=== PATIENT | female | born 1990 | race Caucasian/White ===

== ENCOUNTER 2016-02-17 17:59 | Emergency (ER) | payer BC ==
[~2016-02-17] VITALS: Ht 167.6 cm; Wt 130.5 kg
[~2016-02-17 17:59] MED LIST: ALBU0.63 NEB; ALBU8I INH; IBUP800T23 PO; ORPH100T PO; TRAM50 PO
[2016-02-17 18:11] VITALS: BP 141/102; PULSE 78; RESP 16; TEMP 98.8; O2SAT 98
[2016-02-17] MEDS ORDERED: VENTAER INH (18:34)
[2016-02-17] MEDS ORDERED: DICL75TA PO (18:56)
[2016-02-17] MEDS ORDERED: MAGICPED SWISH-SWAL (18:56)
[2016-02-17] MEDS ORDERED: oxyCODONE/ACETAMINOPHEN 5 MG/325 MG TAB PO ONE (19:00)
--- NOTE | 2016-02-17 19:05 | PD ---
HPI Chief Complaint: Oral / Dental Pain or Problem Time Seen by Provider: 18:59 Travel History International Travel<30 days: No Contact w/Intl Traveler<30days: No Traveled to known affect area: No History of Present Illness HPI Patient is a 25-year-old female presenting with dental pain. She has a tooth in the left upper that has had fillings and left lower has a crown done several years prior that has been painful since midnight last night. She reports the pain is sharp and achy. The pain comes in "waves "and will have spontaneous remission. She denies any bleeding, masses or swelling. She is use NSAIDs and Orajel with no relief. She reports pain is 1010. She denies any trauma or injury to the face. The pain does not radiate. She denies sore throat, difficulty swallowing or breathing. Denies fever and chills. PFSH Past Medical History Asthma: Yes Diminished Hearing: No Respiratory: Yes (asthma) Immunizations Current: Yes ?: Not LMP: 6 WEEK AGO : 0 Past Surgical History Oral Surgery: Yes (WISDOM TEETH REMOVED) Tonsillectomy: Yes (T&A) Other Surgery: Yes (PYLONIADAL CYST ) Social History Alcohol Use: Yes (SOCIAL) Tobacco Use: No Substance Use: No Allergies-Medications (Allergen,Severity, Reaction): Coded Allergies: Grass (Verified Allergy, Intermediate, ITCHING, 02/17/16) Reported Meds & Prescriptions Reported Meds & Active Scripts Active Magic Mouthwash Pediatric/Adult Liq (Lidocaine/Diphenhydr/Alum/Mg/Simeth) 60 Ml Susp 10 Ml SWISH-SWAL ACHS Each 5 mL contains: Diphenydramine 4.5 mg,Viscous Lidocaine 2% 10 mg, Maalox Advanced Regular Strength 2.7 ml (Aluminum hydroxide 108 mg, Magnesium hydroxide 108 mg and Simethicone 10.8 mg) Diclofenac Sodium DR (Diclofenac Sodium) 75 Mg Tabdr 75 Mg PO BID Reported Ventolin Hfa 18 GM Inh (Albuterol Sulfate) 90 Mcg/Act Aer 2 Puff INH Q4-6H PRN Review of Systems Except as stated in HPI: all other systems reviewed are Neg Physical Exam Narrative GENERAL: Well-developed and well-nourished adult female in no acute distress. SKIN: Warm and dry. Good turgor without tenting. HEAD: Normocephalic and atraumatic. EYES: PERRL bilaterally, 5mm. EOMI bilaterally. No injection or icterus present. No proptosis. Lids without edema or erythema. ENT: Teeth are painful are #14 and 19. [place] is in place on #19. There are tooth-colored fillings that are in place tooth #14. They're not tender to percussion and there are not loose or subluxed. No fractures of the teeth. There is no gingival erythema, induration, fluctuance or tenderness. No buccal or sublingual masses. Buccal mucosa pink and moist. Oropharynx free of erythema , tonsillar hypertrophy, masses, swelling, asymmetry and exudates. Uvula midline and airway patent. NECK: Supple, no meningeal signs. Trachea midline, no JVD. No cervical or facial lymphadenopathy. CARDIOVASCULAR: Regular rate and rhythm without murmurs, rubs, clicks or gallops. Radial pulses 2+ bilaterally. RESPIRATORY: Clear to auscultation bilaterally with symmetrical rise and fall, no distress or use of accessory muscles. NEUROLOGIC: CN II-XII grossly intact. Awake and alert. Motor grossly within normal limits. Normal speech. PSYCHIATRIC: Appropriate mood and affect; insight and judgment normal. Data Data Last Documented VS Vital Signs Date Time Temp Pulse Resp B/P Pulse Ox O2 Delivery O2 Flow Rate FiO2 02/17/16 18:11 98.8 78 16 141/102 98 Orders Ed Urine Pregnancytest Poc (02/17/16 18:45) Oxycodone-Acetamin 5-325 Mg (Percocet (02/17/16 19:00) MDM Medical Decision Making Medical Screen Exam Complete: Yes Emergency Medical Condition: Yes Differential Diagnosis Caries versus Periapical abscess versus cellulitis versus Tooth Fracture vs less likely Ludwigs Angina Narrative Course Patient's 25-year-old with 10 out of 10 episodic dental pain and to treat the left side since midnight. Attempts at palliation have not helped. She seems to be in discomfort however there are no hard findings suggesting any pathology specifically. I think that she has a crown in place and fillings in place that perhaps there is caries present underneath these but cannot be certain. There is no sign of infection. Patient was given Percocet here once and a prescription for diclofenac and Magic mouthwash. Recommend follow-up with dentist tomorrow morning.See discharge paperwork for further instructions. The plan was discussed with the patient who acknowledged their understanding and agreement. Reinforced the follow-up with primary care is critically important. Patient instructed on emergent conditions that should prompt return to ED. Diagnosis Primary Impression: Pain, dental Patient Instructions: General Instructions, Narcotic given in the ED Additional Instructions: Take medication as directed Use salt water gargles, Orajel, or other OTC products for topical pain relief Apply ice packs hourly as needed to help with swelling and pain Schedule with dentist NORBERT for definitive treatment Return to the ED for any acute worsening of symptoms Med/Other Pt SpecificInfo: Prescription(s) given Scripts Tdyquvyzrengdjp-Jfpreenpu-Pvl-Alum-Simeth Liq (Magic Mouthwash Pediatric/Adult Liq)60 Ml Susp10 Ml SWISH-SWAL ACHS #120 ML Each 5 mL contains: Diphenydramine 4.5 mg,Viscous Lidocaine 2% 10 mg, Maalox Advanced Regular Strength 2.7 ml (Aluminum hydroxide 108 mg, Magnesium hydroxide 108 mg and Simethicone 10.8 mg) Prov:Aiden Castro MD 02/17/[address] 75 Mg Tabdr75 Mg PO BID #14 TAB Prov:Aiden Castro MD 02/17/16 Disposition: 01 DISCHARGE HOME Condition: Stable Sebastian Mandujano III Feb 17, 2016 19:05
== END 2016-02-17 19:43 | disposition home or self-care (01) ==
LOC: PHEFT 17:59
DX: K08.89 Other specified disorders of teeth and supporting structures (principal)
CPT/HCPCS: 84703; 99282

== ENCOUNTER 2016-11-10 19:17 | Emergency (ER) | payer BC ==
[~2016-11-10 19:17] MED LIST changes: -ALBU0.63 NEB; -ALBU8I INH; +DICL75TA PO; -IBUP800T23 PO; +MAGICPED SWISH-SWAL; -ORPH100T PO; -TRAM50 PO; +VENTAER INH
[2016-11-10 19:18] VITALS: BP 156/72; PULSE 116; RESP 16; TEMP 99.9; O2SAT 95
[2016-11-10] MEDS ORDERED: DESO1TAB14 PO (19:55)
[2016-11-10] MEDS ORDERED: PHEN0.4T PO (19:55)
[2016-11-10] MEDS ORDERED: MACR100C2 PO (19:55)
[2016-11-11] MEDS ORDERED: DOXY100C PO (02:40)
[2016-11-11] MEDS ORDERED: HYDR-3533 PO (02:40)
[2016-11-11] MEDS ORDERED: ACYC400T PO (02:40)
== END 2016-11-10 21:57 | disposition left against medical advice (07) ==
LOC: NED 19:17
DX: R21 Rash and other nonspecific skin eruption (principal); Z53.21 Procedure and treatment not carried out due to patient leaving prior to being seen by health care provider
CPT/HCPCS: 99281

== ENCOUNTER 2016-11-10 22:14 | Emergency (ER) | payer BC ==
[~2016-11-10] VITALS: Ht 167.6 cm; Wt 121.9 kg
[~2016-11-10 22:14] MED LIST changes: +DESO1TAB14 PO; +MACR100C2 PO; +PHEN0.4T PO
[2016-11-10 22:20] VITALS: BP 137/84; PULSE 93; RESP 16; TEMP 99.5; O2SAT 98
[2016-11-10 23:07] LABS: GLUCOSE,URINE 500 mg/dL (NEG); KETONE, URINE TRACE mg/dL (NEG); NITRITE,URINE POS (NEG)
[2016-11-10 23:20] LABS: BLOOD, URINE TRACE (NEG)
[2016-11-10 23:21] LABS: URINE COLOR ORANGE (YELLW/STRAW)
[2016-11-10 23:22] LABS: MUCUS URINE MOD /lpf (OCC)
[2016-11-10 23:24] LABS: BACTERIA, URINE FEW /hpf; COMMENT (UR) CULTURE INDICATED; CULTURE IF INDICATED CULTURE INDICATED
[2016-11-11] MEDS ORDERED: AZITHROMYCIN 250 MG TAB PO ONE (02:00)
[2016-11-11] MEDS ORDERED: LIDOCAINE HCL 1% 50 ML VIAL IM ONE (02:00)
[2016-11-11] MEDS ORDERED: cefTRIAXone 250 MG VIAL IM ONE (02:00)
[2016-11-11 02:20] VITALS: BP 148/90; PULSE 90; RESP 16; O2SAT 100
[2016-11-11] MEDS ORDERED: ACYC400T PO (02:40)
[2016-11-11] MEDS ORDERED: HYDR-3533 PO (02:40)
[2016-11-11] MEDS ORDERED: DOXY100C PO (02:40)
--- NOTE | 2016-11-11 02:41 | PD ---
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 Patient was recently seen in urgent care and prescribed Macrobid without symptom relief. Due to persistence of symptoms decided to come to the emergency room for further evaluation. Patient is urinary frequency and urgency and dysuria. No reported vaginal discharge or abnormal vaginal bleeding. Patient denies . Discomfort is 6/10 in intensity. No reported fever chills nausea vomiting flank pain or hematuria. No other complaints no respiratory illness no chest pain or shortness of breath no generalized abdominal pain no joint pain or swelling or skin rash. Patient is to identify exacerbating or alleviating factors. PFSH Past Medical History Narrative Medical Asthma dental extraction tonsillectomy occasional alcohol use no tobacco use nursing notes reviewed Asthma: Yes Diminished Hearing: No Respiratory: Yes (asthma) Immunizations Current: Yes Influenza Vaccination: No ?: Not LMP: 10/15/16 : 0 Past Surgical History Oral Surgery: Yes (WISDOM TEETH REMOVED) Tonsillectomy: Yes (T&A) Other Surgery: Yes (PYLONIADAL CYST ) Social History Alcohol Use: Yes (SOCIAL) Tobacco Use: No Substance Use: No Allergies-Medications (Allergen,Severity, Reaction): Coded Allergies: grass pollen (Unverified Allergy, Intermediate, ITCHING, 11/15/16) Reported Meds & Prescriptions Reported Meds & Active Scripts Active Acyclovir 400 Mg Tab 400 Mg PO TID 7 Days Lortab (Hydrocodone-Acetaminophen) 5-325 Mg Tab 1 Tab PO Q6H PRN Doxycycline Hyclate 100 Mg Cap 100 Mg PO BID Reported Ibuprofen 400 Mg Tab 400 Mg PO Q4H PRN Azurette (Desogestrel-Ethinyl Estradiol) 0.15-0.02/0.01 Mg (29/06) Tab 1 Tab PO DAILY Ventolin Hfa 18 GM Inh (Albuterol Sulfate) 90 Mcg/Act Aer 2 Puff INH Q4-6H PRN Review of Systems Except as stated in HPI: all other systems reviewed are Neg General / Constitutional: No: Fever, Chills HENT: No: Congestion Cardiovascular: No: Chest Pain or Discomfort Respiratory: No: Shortness of Breath Gastrointestinal: No: Abdominal Pain Genitourinary: Positive: Dysuria, No: Flank Pain Musculoskeletal: No: Myalgias, Arthralgias Skin: Positive Rash, No Hives Neurologic: No: Weakness Psychiatric: No: Anxiety Hematologic/Lymphatic: No: Lymph Node Enlargement Physical Exam Narrative GENERAL: Well-developed well-nourished female in no acute distress no respiratory distress SKIN: Warm and dry. HEAD: Normocephalic. EYES: No scleral icterus. No injection or drainage. NECK: Supple, trachea midline. No JVD or lymphadenopathy. CARDIOVASCULAR: Regular rate and rhythm without murmurs, gallops, or rubs. RESPIRATORY: Breath sounds equal bilaterally. No accessory muscle use. GASTROINTESTINAL: Abdomen soft, non-tender, nondistended. Pelvic exam: External exam: multiple pustules associated with her follicles and few vesicles and interrupted ulcerations; speculum exam clear mucus no blood clots tissue os is open MUSCULOSKELETAL: No cyanosis, or edema. BACK: Nontender without obvious deformity. No CVA tenderness. Data Data Last Documented VS Orders Orders Urinalysis - C+S If Indicated (11/10/16 22:36) Ed Urine Pregnancytest Poc (11/10/16 22:36) Urine Culture (11/10/16 22:45) Gc And Chlamydia Pcr (11/11/16 01:15) Wet Prep Profile (11/11/16 01:15) Azithromycin (Zithromax) (11/11/16 02:00) Ceftriaxone Inj (Rocephin Inj) (11/11/16 02:00) Lidocaine 1% Inj (50 Ml) (Xylocaine 1% I (11/11/16 02:00) Labs Laboratory Tests Test 11/10/16 22:45 11/11/16 01:00 Urine Color ORANGE Urine Turbidity CLEAR Urine pH 5.0 Urine Specific [place] 1.022 Urine Protein 100 mg/dL Urine Glucose (UA) 500 mg/dL Urine Ketones TRACE mg/dL Urine Occult Blood TRACE Urine Nitrite POS Urine Bilirubin NEG Urine Leukocyte Esterase MOD Urine RBC 4-9 /hpf Urine WBC 20-24 /hpf Urine WBC Clumps OCC Urine Squamous Epithelial Cells 6-8 /hpf Urine Bacteria FEW /hpf Urine Mucus MOD /lpf Microscopic Urinalysis Comment CULTURE INDICATED Clue Cells (Wet Prep) NONE SEEN Vaginal Trichomonas (Wet Prep) NONE SEEN Vaginal Yeast (Wet Prep) NONE SEEN Chlamydia trachomatis DNA (PCR) NOT DETECTED Neisseria gonorrhoeae DNA (PCR) NOT DETECTED MDM Medical Decision Making Medical Screen Exam Complete: Yes Emergency Medical Condition: Yes Medical Record Reviewed: Yes Interpretation(s) Urinalysis positive white blood cells bacteria and nitrites, CX indicated Differential Diagnosis Folliculitis, genital herpes, UTI, STI, PID Narrative Course Patient with recent diagnosis of UTI without improvement of symptoms; urine specimen obtained and sent for resulting. [id number] hCG negative On pelvic exam patient noted to have multiple ulcerations concerning for herpetic type rash and also noted to have areas of pustules associated with hair follicles consistent with folliculitis Urinalysis abnormal with positive nitrites positive leukocyte Estrace white blood cells and bacteria cultures indicated Patient given prescription for antibiotic coverage of urinary tract infection and antiviral while viral specimen results pending wet prep negative PCR chlamydia and gonorrhea pending Patient administered presumptive antibiotic coverage with Rocephin and azithromycin. Patient stable for outpatient management. Diagnosis Primary Impression: UTI (urinary tract infection) Additional Impressions: Acute vaginitis Folliculitis Referrals: Primary Care Physician call for appointment Patient Instructions: General Instructions Med/Other Pt SpecificInfo: Prescription(s) given Scripts Acyclovir (Acyclovir) 400 Mg Tab 400 MG PO TID for Mgmt Viral Infection for 7 Days, TAB 0 Refills Prov: Elba Paredes MD 11/11/16 Hydrocodone-Acetaminophen (Lortab) 5-325 Mg Tab 1 TAB PO Q6H Y for PAIN, #7 TAB 0 Refills Prov: Elba Paredes MD 11/11/16 Doxycycline Hyclate (Doxycycline Hyclate) 100 Mg Cap 100 MG PO BID for Infection, #14 CAP 0 Refills Prov: Elba Paredes MD 11/11/16 Disposition: 01 DISCHARGE HOME Condition: Stable Elba Paredes MD Nov 11, 2016 02:41
[2016-11-11 12:58] LABS: CHLAMYDIA PCR NOT DETECTED (NOT DETECT); NEISSERIA PCR NOT DETECTED (NOT DETECT)
== END 2016-11-11 03:07 | disposition home or self-care (01) ==
LOC: PHED 22:14
DX: N39.0 Urinary tract infection, site not specified (principal); N76.0 Acute vaginitis; L73.9 Follicular disorder, unspecified
CPT/HCPCS: 81001; 84703; 87086; 87210; 87491; 87591; 96372; 99284; J0696

== ENCOUNTER 2016-11-15 14:16 | Emergency (ER) | payer BC ==
[~2016-11-15] VITALS: Ht 167.6 cm; Wt 119.5 kg
[~2016-11-15 14:16] MED LIST changes: +ACYC400T PO; -DICL75TA PO; +DOXY100C PO; +HYDR-3533 PO; -MAGICPED SWISH-SWAL
[2016-11-15 14:19] VITALS: BP 122/83; PULSE 95; RESP 18; TEMP 98.9; O2SAT 98
[2016-11-15] MEDS ORDERED: IBUP400T20 PO (14:31)
[2016-11-15] MEDS ORDERED: SODIUM CHLOR 0.9% 1000 ML INJ 1,000 ML IV ONE ×2 (14:45→15:30)
[2016-11-15 14:50] LABS: AUTOMATED NEUTROPHIL # 4.2 TH/MM3 (1.8-7.7); BASOPHIL % 0.3 % (0.0-2.0); EOSINOPHIL # 0.1 TH/MM3 (0-0.4); EOSINOPHIL % 0.9 % (0.0-4.0); HEMATOCRIT 36.6 % (35.0-46.0); HEMO FLAGS DIFF FINAL; LYMPH % 22.7 % (9.0-44.0); LYMPHOCYTE # 1.4 TH/MM3 (1.0-4.8); MEAN CELL VOLUME 76.5 FL (80.0-100.0); MEAN CORPUSCULAR HGB CONC 32.7 % (32.0-36.0); MONO % 9.1 % (0.0-8.0); PLATELET COUNT 318 TH/MM3 (150-450); RED BLOOD COUNT 4.78 MIL/MM3 (4.00-5.30); RED CELL DISTRIBUTION WIDTH 14.4 % (11.6-17.2); WHITE BLOOD COUNT 6.3 TH/MM3 (4.0-11.0)
[2016-11-15 14:58] LABS: POTASSIUM 3.8 MEQ/L (3.5-5.1)
[2016-11-15 15:01] LABS: BICARBONATE 26.3 MEQ/L (21.0-32.0)
--- NOTE | 2016-11-15 15:54 | PD ---
HPI Chief Complaint: Complaint Time Seen by Provider: 14:29 Travel History International Travel<30 days: No Contact w/Intl Traveler<30days: No Traveled to known affect area: No History of Present Illness HPI Patient is a 26 year old female who comes in complaining of being unable to urinate. She says for the past day, she says she has to sit on the toilet for 30 minutes and try to force out her urine. She says she feels some pressure in her bladder. She denies any back/flank pain. She has no fever or chills. She denies nausea or vomiting. She was seen here earlier in the week and was diagnosed with a UTI. She had originally gone to urgent care and was given Macrobid. This was then changed to Doxycycline here. She says her UTI symptoms have improved, but she is unable to urinate. PFSH Past Medical History Asthma: Yes Diminished Hearing: No Respiratory: Yes (asthma) Immunizations Current: Yes Influenza Vaccination: No ?: Not LMP: NOW : 0 Past Surgical History Oral Surgery: Yes (WISDOM TEETH REMOVED) Tonsillectomy: Yes (T&A) Other Surgery: Yes (PYLONIADAL CYST ) Social History Alcohol Use: Yes (SOCIAL) Tobacco Use: No Substance Use: No Allergies-Medications (Allergen,Severity, Reaction): Coded Allergies: grass pollen (Unverified Allergy, Intermediate, ITCHING, 11/15/16) Reported Meds & Prescriptions Reported Meds & Active Scripts Active Acyclovir 400 Mg Tab 400 Mg PO TID 7 Days Lortab (Hydrocodone-Acetaminophen) 5-325 Mg Tab 1 Tab PO Q6H PRN Doxycycline Hyclate 100 Mg Cap 100 Mg PO BID Reported Ibuprofen 400 Mg Tab 400 Mg PO Q4H PRN Azurette (Desogestrel-Ethinyl Estradiol) 0.15-0.02/0.01 Mg (29/06) Tab 1 Tab PO DAILY Ventolin Hfa 18 GM Inh (Albuterol Sulfate) 90 Mcg/Act Aer 2 Puff INH Q4-6H PRN Review of Systems Except as stated in HPI: all other systems reviewed are Neg General / Constitutional: No: Fever, Chills HENT: No: Headaches, Lightheadedness Cardiovascular: No: Chest Pain or Discomfort Respiratory: No: Shortness of Breath Gastrointestinal: No: Nausea, Vomiting, Abdominal Pain Genitourinary: Positive: Decreased Urinary Output Musculoskeletal: No: Pain Skin: No Rash, No Itching Neurologic: No: Weakness, Dizziness Physical Exam Narrative GENERAL: Awake and alert, in no acute distress. SKIN: Focused skin assessment warm/dry. HEAD: Atraumatic. Normocephalic. EYES: Pupils equal and round. No scleral icterus. ENT: Mucous membranes pink and moist. NECK: Trachea midline. No JVD. CARDIOVASCULAR: Regular rate and rhythm. No murmur appreciated. RESPIRATORY: No accessory muscle use. Clear to auscultation. Breath sounds equal bilaterally. GASTROINTESTINAL: Abdomen soft, non-tender, nondistended. No CVA tenderness. MUSCULOSKELETAL: No obvious deformities. No clubbing. No cyanosis. No edema. NEUROLOGICAL: Awake and alert. No obvious cranial nerve deficits. Motor grossly within normal limits. Normal speech. PSYCHIATRIC: Appropriate mood and affect; insight and judgment normal. Data Data Last Documented VS Vital Signs Date Time Temp Pulse Resp B/P (MAP) Pulse Ox O2 Delivery O2 Flow Rate FiO2 11/15/16 16:33 78 18 115/76 (89) 98 11/15/16 14:19 98.9 Orders Orders Iv Access Insert/Monitor (11/15/16 14:37) Complete Blood Count With Diff (11/15/16 14:37) Basic Metabolic Panel (Bmp) (11/15/16 14:37) Sodium Chlor 0.9% 1000 Ml Inj (Ns 1000 M (11/15/16 14:45) Sodium Chlor 0.9% 1000 Ml Inj (Ns 1000 M (11/15/16 15:30) Urinalysis - C+S If Indicated (11/15/16 16:34) Ct Abd/Pel W/O Iv Contrast (11/15/16 ) Labs Laboratory Tests Test 11/15/16 14:40 11/15/16 16:35 White Blood Count 6.3 TH/MM3 Red Blood Count 4.78 MIL/MM3 Hemoglobin 12.0 GM/DL Hematocrit 36.6 % Mean Corpuscular Volume 76.5 FL Mean Corpuscular Hemoglobin 25.0 PG Mean Corpuscular Hemoglobin Concent 32.7 % Red Cell Distribution Width 14.4 % Platelet Count 318 TH/MM3 Mean Platelet Volume 8.3 FL Neutrophils (%) (Auto) 67.0 % Lymphocytes (%) (Auto) 22.7 % Monocytes (%) (Auto) 9.1 % Eosinophils (%) (Auto) 0.9 % Basophils (%) (Auto) 0.3 % Neutrophils # (Auto) 4.2 TH/MM3 Lymphocytes # (Auto) 1.4 TH/MM3 Monocytes # (Auto) 0.6 TH/MM3 Eosinophils # (Auto) 0.1 TH/MM3 Basophils # (Auto) 0.0 TH/MM3 CBC Comment DIFF FINAL Differential Comment Blood Urea Nitrogen 10 MG/DL Creatinine 0.66 MG/DL Random Glucose 110 MG/DL Calcium Level 8.8 MG/DL Sodium Level 139 MEQ/L Potassium Level 3.8 MEQ/L Chloride Level 106 MEQ/L Carbon Dioxide Level 26.3 MEQ/L Anion Gap 7 MEQ/L Estimat Glomerular Filtration Rate 109 ML/MIN Urine Collection Type CLEAN CATCH Urine Color YELLOW Urine Turbidity CLEAR Urine pH 7.0 Urine Specific [place] 1.018 Urine Protein NEG mg/dL Urine Glucose (UA) NEG mg/dL Urine Ketones NEG mg/dL Urine Occult Blood LARGE Urine Nitrite NEG Urine Bilirubin NEG Urine Leukocyte Esterase NEG Urine RBC 20-24 /hpf Urine WBC 0-2 /hpf Urine Squamous Epithelial Cells 0-5 /hpf Microscopic Urinalysis Comment CULT NOT INDICATED MDM Medical Decision Making Medical Screen Exam Complete: Yes Emergency Medical Condition: Yes Medical Record Reviewed: Yes Differential Diagnosis urinary retention vs BRIDGET vs dehydration Narrative Course Patient is a 26 year old female who comes in complaining of being unable to urinate. Exam shows no acute abnormalities. IV established, labs sent. Labs show no acute abnormalities. Patient given 2L IVF. Patient was able to urinate a large amount of urine. However, she says that she had to reposition herself several times to urinate. CT abdomen and pelvis shows no evidence of blockage for any acute abnormalities. Patient has an appointment with gynecology on Thursday. She is advised to keep this appointment. Advised to return to the ED as needed for any worsening symptoms. Diagnosis Primary Impression: Difficulty urinating Patient Instructions: Acute Urinary Retention in Women (ED), General Instructions Additional Instructions: Follow-up with gynecology. Drink plenty of fluids and keep her bladder full. Return to the ED as needed for any worsening symptoms. Disposition: 01 DISCHARGE HOME Condition: Stable Patricia Martínez MD Nov 15, 2016 15:54
[2016-11-15 16:33] VITALS: BP 115/76; PULSE 78; RESP 18; O2SAT 98
[2016-11-15 16:44] LABS: BLOOD, URINE LARGE (NEG); GLUCOSE,URINE NEG (NEG); KETONE, URINE NEG (NEG); NITRITE,URINE NEG (NEG)
[2016-11-15 16:48] LABS: METHOD OF COLLECTION CLEAN CATCH; URINE COLOR YELLOW (YELLW/STRAW)
[2016-11-15 16:49] LABS: COMMENT (UR) CULT NOT INDICATED; CULTURE IF INDICATED CULT NOT INDICATED; SQUAMOUS EPITHELIAL CELL URINE 0-5 /hpf (0-5); WBC, URINE 0-2 /hpf (0-5)
--- NOTE | 2016-11-15 18:05 | RADRPT ---
EXAM DATE/TIME: 11/15/2016 17:42 [facility] COMPARISON: No previous studies available for comparison. INDICATIONS : Unable to void. Stone. ORAL CONTRAST: No oral contrast ingested. RADIATION DOSE: 27.97 CTDIvol (mGy) MEDICAL HISTORY : Asthma SURGICAL HISTORY : Tonsillectomy. Pyloniadal cyst. ENCOUNTER: Initial ACUITY: 1 day PAIN SCALE: 6/10 LOCATION: Bilateral abdomen TECHNIQUE: Volumetric scanning of the abdomen and pelvis was performed. Using automated exposure control and ad justment of the mA and/or kV according to patient size, radiation dose was kept as low as reasonably achievable to obtain optimal diagnostic quality images. DICOM format image data is available electro nically for review and comparison. FINDINGS: LOWER LUNGS: The visualized lower lungs are clear. LIVER: Visualized portions are unremarkable. SPLEEN: Normal size without lesion. PANCREAS: Within normal limits. KIDNEYS: Normal in size and shape. There is no mass, stone, or hydronephrosis. ADRENAL GLANDS: Within normal limits. VASCULAR: There is no aortic aneurysm. BOWEL/MESENTERY: The stomach, small bowel, and colon demonstrate no acute abnormality. There is no free intraperitone al air or fluid. ABDOMINAL WALL: Within normal limits. RETROPERITONEUM: There is no lymphadenopathy. BLADDER: No wall thickening or mass. REPRODUCTIVE: Within normal limits. INGUINAL: There is no lymphadenopathy or hernia. MUSCULOSKELETAL: Within normal limits for patient age. CONCLUSION: No evidence of kidney stones or hydronephrosis. No acute findings Sebastian Ball MD on November 15, 2016 at 17:57 Board Certified Radiologist. This report was verified electronically.
== END 2016-11-15 18:28 | disposition home or self-care (01) ==
LOC: PHED 14:16
DX: R33.9 Retention of urine, unspecified (principal); J45.909 Unspecified asthma, uncomplicated; N39.0 Urinary tract infection, site not specified
CPT/HCPCS: 74176; 80048; 81001; 85025; 96360; 99285; J7030